=== PATIENT | female | born 1930 | race Caucasian/White ===

== ENCOUNTER 2019-03-21 11:03 | Inpatient (IN) | payer MEDICAID, OTHER ==
[~2019-03-21] VITALS: Ht 154.9 cm; Wt 54.4 kg
[2019-03-21] MEDS ORDERED: SODIUM CHLORIDE 0.9% 1,000 ML IV ONE (11:29)
[2019-03-21] MEDS ORDERED: ONDANSETRON HCL 4MG/2ML INJ IV STA (11:29)
[2019-03-21] MEDS ORDERED: MORPHINE SULFATE 4 MG/ML CPJ (NOT FOR IM USE) IV STA (11:29)
[2019-03-21] MEDS ORDERED: MORPHINE SULFATE 4 MG/ML CPJ (NOT FOR IM USE) IV ONE ×2 (13:30→17:00)
[2019-03-21] MEDS ORDERED: ETOMIDATE 2MG/ML 10ML VIAL IV ONE (13:30)
[2019-03-21 15:42] LABS: CHLORIDE 100 mEq/L (98-107)
[2019-03-21 15:44] LABS: PARTIAL THROMBOPLASTIN TIME 22.7 sec (23.4-31.0); PROTHROMBIN TIME 10.8 sec (9.6-11.0)
[2019-03-21 15:45] LABS: HEMATOCRIT. 38.2 % (36.0-48.0); HEMOGLOBIN. 12.7 g/dL (12.0-16.0); MEAN CORPUSCULAR HEMOGLOBIN 30.2 pg (28.0-32.0); MEAN CORPUSCULAR VOLUME 91.1 fL (81.0-99.0); MEAN PLATELET VOLUME 7.9 fl (7.4-10.4); PLATELET 262 x1000/uL (130-400); RED BLOOD CELL COUNT 4.19 mill/uL (4.2-5.4); RED CELL DISTRIBUTION WIDTH 13.9 % (11.6-14.6)
[2019-03-21 16:40] LABS: CHLORIDE 113 mEq/L (98-107)
[2019-03-21] MEDS ORDERED: SODIUM BICARBONATE 8.4% 1 MEQ/ML 50ML SYR IV ONE (16:45)
[2019-03-21 16:55] LABS: PLATELET ESTIMATE NORMAL
[2019-03-21] MEDS ORDERED: ONDANSETRON HCL 4MG/2ML INJ IV PRN (17:30)
[2019-03-21] MEDS ORDERED: ACETAMINOPHEN 325MG TABLET PO PRN (17:30)
[2019-03-21 19:30] VITALS: BP 140/53
[2019-03-21 20:00] VITALS: BP 140/53
[2019-03-21] MEDS: AMLODIPINE 5MG TABLET PO SCH (21:08)
[2019-03-21] MEDS: MORPHINE SULFATE 2 MG/ML CPJ (NOT FOR IM USE) IV PRN (21:09)
[2019-03-22] VITALS (7 sets, daily range): BP systolic 103–140; BP diastolic 50–72
[2019-03-22 06:45] LABS: HEMOGLOBIN. 13.3 g/dL (12.0-16.0); MEAN CORPUSCULAR HEMOGLOBIN 30.6 pg (28.0-32.0); MEAN CORPUSCULAR VOLUME 92.2 fL (81.0-99.0); MEAN PLATELET VOLUME 8.4 fl (7.4-10.4); PLATELET 242 x1000/uL (130-400); RED BLOOD CELL COUNT 4.34 mill/uL (4.2-5.4)
[2019-03-22 06:53] LABS: CLARITY URINE CLEAR (CLEAR); COLOR URINE YELLOW (YELLOW); KETONES URINE NEGATIVE (NEGATIVE); LEUKOCYTE ESTERASE URINE 1+ (NEGATIVE); NITRITE URINE NEGATIVE (NEGATIVE); OCCULT BLOOD URINE TRACE (NEGATIVE); PROTEIN URINE NEGATIVE (NEGATIVE); SPECIFIC GRAVITY URINE 1.009 (1.005-1.030); UROBILINOGEN URINE 0.2 E.U./dL (0.2-1.0)
[2019-03-22 06:56] LABS: CHLORIDE 105 mEq/L (98-107)
[2019-03-22] MEDS: AMLODIPINE 5MG TABLET PO SCH ×2 (08:17→21:19)
[2019-03-22] MEDS: MORPHINE SULFATE 2 MG/ML CPJ (NOT FOR IM USE) IV PRN ×3 (08:26→21:21)
[2019-03-22 09:13] LABS: PLATELET ESTIMATE NORMAL
[2019-03-22] MEDS: HYDROCODONE/ACETAMINOPHEN 5/325MG TABLET PO PRN ×2 (11:46→18:38)
[2019-03-22] MEDS ORDERED: HYDR-4001 MT (16:28)
[2019-03-23] VITALS: BP 152/52
[2019-03-23 04:00] VITALS: BP_SYST 136; BP_SYST 140; BP_DIAS 57; BP_DIAS 77
[2019-03-23] MEDS: HYDROCODONE/ACETAMINOPHEN 5/325MG TABLET PO PRN ×4 (04:51→21:13)
[2019-03-23] MEDS: AMLODIPINE 5MG TABLET PO SCH ×2 (10:40→21:13)
[2019-03-23] MEDS ORDERED: ALBU18HF2 IH (16:49)
[2019-03-23] MEDS: IPRATROPIUM/ALBUTEROL 0.5-3(2.5)MG/3ML NEB HHN SCH ×2 (17:02→20:33)
[2019-03-23 20:00] VITALS: BP 143/50
[2019-03-24] VITALS: BP 132/51
[2019-03-24] MEDS: IPRATROPIUM/ALBUTEROL 0.5-3(2.5)MG/3ML NEB HHN SCH ×5 (00:03→16:39)
[2019-03-24] MEDS: MORPHINE SULFATE 2 MG/ML CPJ (NOT FOR IM USE) IV PRN (00:34)
[2019-03-24 04:00] VITALS: BP 152/61
[2019-03-24 08:00] VITALS: BP 126/55
[2019-03-24] MEDS: AMLODIPINE 5MG TABLET PO SCH (08:59)
[2019-03-24 12:38] VITALS: BP 139/58
[2019-03-24 13:02] VITALS: BP 139/58
[2019-03-24 16:40] VITALS: BP 130/56
== END 2019-03-24 16:42 | disposition home or self-care (01) | DRG 342 ==
LOC: EDBD → ER 11:03 → EDBEDREQ 17:21 → EDBEDREQTM 17:21 → 6EST 17:21 → ENRESERV 18:22
PROVIDERS: ADMIT Internal Medicine; ATTEND Internal Medicine
PROC: 0RSMXZZ Reposition Left Elbow Joint, External Approach (ICD-10-PCS; principal; 2019-03-21)
DX: S52.502A Unspecified fracture of the lower end of left radius, initial encounter for closed fracture (principal); E44.0 Moderate protein-calorie malnutrition; E87.5 Hyperkalemia; E87.1 Hypo-osmolality and hyponatremia; I10 Essential (primary) hypertension; S52.612A Displaced fracture of left ulna styloid process, initial encounter for closed fracture; W18.31XA Fall on same level due to stepping on an object, initial encounter; Y93.01 Activity, walking, marching and hiking; Y92.89 Other specified places as the place of occurrence of the external cause; Y99.8 Other external cause status; Z68.22 Body mass index [BMI] 22.0-22.9, adult
CPT/HCPCS: 36415; 71045; 73080; 73090; 73110; 80048; 81003; 84145; 86850; 86900; 93005; 94640; 97162; 99285; A4565; C1893; J2270; J2405; J3490; J7030; J7040; J7620

== ENCOUNTER 2019-04-06 10:00 | Emergency (ER) | payer MEDICAID, OTHER ==
[~2019-04-06] VITALS: Ht 160 cm; Wt 55.0 kg
[~2019-04-06 10:00] MED LIST: ALBU18HF2 IH; HYDR-4001 MT
[2019-04-06 13:56] VITALS: BP 154/68
== END 2019-04-06 13:58 | disposition home or self-care (01) ==
LOC: ER 10:00
DX: S52.612D Displaced fracture of left ulna styloid process, subsequent encounter for closed fracture with routine healing (principal); I10 Essential (primary) hypertension; Z79.899 Other long term (current) drug therapy; X58.XXXD Exposure to other specified factors, subsequent encounter
CPT/HCPCS: 99282